=== PATIENT | female | born 1960 | race Caucasian/White ===

== ENCOUNTER 2017-04-20 17:32 | Emergency (ER) | payer BC ==
[2017-04-20] MEDS ORDERED: diphenhydrAMINE 25 MG CAP PO ONE (17:44)
--- NOTE | 2017-04-20 17:45 | EDPHY ---
H & P Time Seen by Provider: 04/20/17 17:42 HPI/ROS: CHIEF COMPLAINT: Insect sting HISTORY OF PRESENT ILLNESS: The patient is a 56-year-old female who comes to the emergency department 20 minutes after being stung 3 times by a bee while working in her garden. She got stung twice in the right arm and once in the leg. She has itching and mild pain. No systemic symptoms. No respiratory symptoms. She has never been stung by an insect before. REVIEW OF SYSTEMS: Constitutional: denies: chills, fever, recent illness, recent injury EENTM: denies: blurred vision, double vision, nose congestion Respiratory: denies: cough, shortness of breath Cardiac: denies: chest pain, irregular heart rate, lightheadedness, palpitations Gastrointestinal/Abdominal: denies: abdominal pain, diarrhea, nausea, vomiting, blood streaked stools Genitourinary: denies: dysuria, frequency, hematuria, pain Musculoskeletal: denies: joint pain, muscle pain Skin: See HPI Neurological: denies: headache, numbness, paresthesia, tingling, dizziness, weakness Hematologic/Lymphatic: denies: blood clots, easy bleeding, easy bruising Immunologic/allergic: denies: HIV/AIDS, transplant EXAM: GENERAL: Well-appearing, well-nourished and in no acute distress. HEAD: Atraumatic, normocephalic. EYES: Pupils equal round and reactive to light, extraocular movements intact, sclera anicteric, conjunctiva are normal. ENT: TMs normal, nares patent, oropharynx clear without exudates. Moist mucous membranes. NECK: Normal range of motion, supple without lymphadenopathy or JVD. LUNGS: Breath sounds clear to auscultation bilaterally and equal. No wheezes rales or rhonchi. HEART: Regular rate and rhythm without murmurs, rubs or gallops. ABDOMEN: Soft, nontender, normoactive bowel sounds. No guarding, no rebound. No masses appreciated. BACK: No CVA tenderness, no spinal tenderness, step-offs or deformities EXTREMITIES: Normal range of motion, no pitting or edema. No clubbing or cyanosis. NEUROLOGICAL: Cranial nerves II through XII grossly intact. Normal speech, normal gait. 5/5 strength, normal movement in all extremities, normal sensation PSYCH: Normal mood, normal affect. SKIN: 3 small stings to right arm and leg. He is very minimal urticaria surrounding the sting. No erythema or fever. Source: Patient Exam Limitations: No limitations - Medical/Surgical History Hx Asthma: No Hx Chronic Respiratory Disease: No Hx Diabetes: No Hx Cardiac Disease: No Hx Renal Disease: No Hx Cirrhosis: No Hx Alcoholism: No Hx HIV/AIDS: No - Family History Significant Family History: No pertinent family hx - Social History Alcohol Use: None Drug Use: None Constitutional: Initial Vital Signs Temperature (C) 36.4 C 04/20/17 17:38 Heart Rate 69 04/20/17 17:38 Respiratory Rate 16 04/20/17 17:38 Blood Pressure 126/82 H 04/20/17 17:38 O2 Sat (%) 97 04/20/17 17:38 O2 Delivery Mode Room Air Allergies/Adverse Reactions: gluten Allergy (Verified 04/20/17 17:44) Milk Containing Products [dairy] Allergy (Verified 04/20/17 17:44) soy Allergy (Verified 04/20/17 17:44) Sulfa (Sulfonamide Antibiotics) [Sulfa(Sulfonamide Antibiotics)] Allergy ( Verified 04/20/17 17:44) Home Medications: Medication Instructions Recorded Levothyroxine [Synthroid 150 mcg 150 mcg PO DAILY06 05/10/12 (RX)] Liothyronine Sodium [Cytomel 5 mcg 5 mcg PO DAILY 05/10/12 (RX)] diphenhydrAMINE [Benadryl 50 MG 50 mg PO Q4-6PRN PRN #30 cap 04/20/17 (OTC)] Medical Decision Making ED Course/Re-evaluation: The patient has very minimal allergic reaction. I will start her on Benadryl. We discussed taking this at home as well as changing to other medications. I do not think that steroids are epinephrine or warranted. Patient understands and agrees with this plan. We discussed indications for returning. Differential Diagnosis: Partial list of the Differential diagnosis considered include but were not limited to; allergic reaction, insect sting and although unlikely based on the history and physical exam, I also considered cellulitis, anaphylaxis. I discussed these differential diagnoses and the plan with the patient as well as the usual and expected course. The patient understands that the diagnosis is provisional and that in medicine we are not always correct and that further workup is often warranted. Usual and customary warnings were given. All of the patient's questions were answered. The patient was instructed to return to the emergency department should the symptoms at all worsen or return, otherwise to followup with the physician as we discussed. - Data Points Medications Given: Discontinued Medications Diphenhydramine HCl (Benadryl) 50 mg PO EDNOW ONE Stop: 04/20/17 17:45 Last Admin: 04/20/17 17:55 Dose: 50 mg Departure - Departure Disposition: Home, Routine, Self-Care Clinical Impression: Sting from hornet, wasp, or bee Qualifiers: Encounter type: initial encounter Injury intent: accidental or unintentional Qualified Code(s): T63.451A - Toxic effect of venom of hornets, accidental ( unintentional), initial encounter; T63.441A - Toxic effect of venom of bees, accidental (unintentional), initial encounter; T63.461A - Toxic effect of venom of wasps, accidental (unintentional), initial encounter Condition: Fair Instructions: Insect Bite or Sting (ED), General Allergic Reaction (ED) Additional Instructions: If Benadryl makes you too drowsy may substitute Yeimy or Zyrtec. Referrals: Doctor Not,On Staff, MD [Primary Care Provider] - As per Instructions Prescriptions: diphenhydrAMINE [Benadryl 50 MG (OTC)] 50 mg PO Q4-6PRN PRN #30 cap PRN Reason: Itching
[2017-04-20 17:49] VITALS: BP 126/82; PULSE 69; RESP 16; TEMP 97.5; O2SAT 97
== END 2017-04-20 17:55 | disposition home or self-care (01) ==
LOC: CED 17:32
DX: T63.441A Toxic effect of venom of bees, accidental (unintentional), initial encounter (principal)